=== PATIENT | female | born 1965 | race Caucasian/White ===

== ENCOUNTER 2016-11-28 21:45 | Emergency (ER) | payer OTHER ==
[~2016-11-28] VITALS: Ht 167.6 cm; Wt 79.5 kg
[~2016-11-28 21:45] MED LIST: ALBUTEROL SULF8.5 GM IH; AMBIEN5 M1 PO; ASPIR 8181 M1 PO; ASPIRIN EC325 MG PO; BUPROPION HCL75 MG PO; CELEBREX200 MG PO; CLONIDINE HCL0.1 MG PO; CYMBALTA60 MG PO; Ecotrin PO; FLEXERIL10 MG PO; LEVAQUIN750 MG PO; LISINOPRIL5 MG PO; LITE COAT ASPI325 M1 PO; LODINE500 MG PO; LOPRESSOR25 MG PO; Lipitor PO; METHOTREXATE2.5 MG PO; METOPROLOL SUCC25 MG PO; METOPROLOL TART25 MG PO; NITROSTAT0.4 MG SL; NOHOMEMEDS; OMEPRAZOLE20 MG PO; OMEPRAZOLE40 M1 PO; ONE DAILY TABL1 EAC1 PO; PERCOCET 5/31 TABLET PO; PERCOCET 7.51 TABLET PO; PLAQUENIL200 MG PO; PREDNISONE2.5 MG PO; PREMARIN VAGI42.5 GM VG; PREVACID30 MG PO; PROMETHAZINE HC25 M1 PO; PROVENTIL,2.5 MG/3 M IH; PROVENTIL17 GM IH; PROZAC40 MG PO; Plavix PO; REGLAN5 MG PO; SIMVASTATIN20 MG PO; SIMVASTATIN40 MG PO; VENTOLIN HFA18 GM IH; VOLTAREN50 MG PO; VOLTAREN75 MG PO; ZOFRAN4 MG PO; ZOLPIDEM TARTRAT5 MG PO; Zestril,Prinivil PO; metoprolol PO
[2016-11-28 22:41] LABS: HEMATOCRIT 45.6 % (36.0-46.0); MCH 27.3 PG (29.0-34.0); MCHC 32.5 G/DL (30.0-36.0); MCV 84.1 FL (83-99); MEAN PLAT.VOLUME 9.5 uM^3 (9.5-12.4); PLATELET COUNT 240 K/uL (156-360); RBC DIS.WIDTH-CV 14.6 % (11.8-14.6); RBC DIS.WIDTH-SD 44.5 % (39-53); RED BLOOD COUNT 5.42 M/uL (3.80-5.20); WHITE BLOOD COUNT 7.7 K/uL (4.1-10.2)
[2016-11-28 22:52] LABS: CHLORIDE 108 mEq/L (99-109); POTASSIUM 4.9 mEq/L (3.7-5.4); SODIUM 141 mEq/L (136-147)
[2016-11-28 22:54] LABS: GLUCOSE 75 mg/dL (70-99)
[2016-11-28 22:56] LABS: ANION GAP 11 MEQ/L (2-14)
[2016-11-28 22:58] LABS: GFR ESTIMATE (CALCULATED) > 59 mL/min/
[2016-11-28 22:59] LABS: D-DIMER ELISA 0.74 mg/L FEU (< 0.57); UREA NITROGEN (BUN) 16 mg/dL (9-23)
[2016-11-28 23:06] LABS: TROP-I INTERPRETATION NEGATIVE; TROPONIN-I < 0.01 ng/mL (0.0-0.30)
[2016-11-28 23:20] LABS: MAGNESIUM 2.2 mg/dL (1.3-2.7)
[2016-11-28 23:24] LABS: TOTAL BILIRUBIN 0.4 mg/dL (0.0-1.0)
[2016-11-28 23:25] LABS: ALKALINE PHOSPHATASE 80 IU/L (3-129)
[2016-11-28 23:28] LABS: DIRECT BILIRUBIN 0.1 mg/dL (0.0-0.3)
[2016-11-28 23:29] LABS: LIPASE 33 U/L (1.0-51.0)
[2016-11-29] MEDS ORDERED: LEVAQUIN500 MG PO (00:26)
[2016-11-29] MEDS ORDERED: CARAFATE1 GM PO (00:28)
[2016-11-29] MEDS ORDERED: PROMETHAZINE HC25 M1 PO (00:28)
[2016-11-29 02:23] VITALS: BP 122/77
== END 2016-11-29 02:23 | disposition home or self-care (01) ==
LOC: EME 21:45
DX: J20.9 Acute bronchitis, unspecified (principal); J18.9 Pneumonia, unspecified organism; R11.2 Nausea with vomiting, unspecified; K29.00 Acute gastritis without bleeding; J45.909 Unspecified asthma, uncomplicated; I25.10 Atherosclerotic heart disease of native coronary artery without angina pectoris; G89.29 Other chronic pain; E11.9 Type 2 diabetes mellitus without complications; I10 Essential (primary) hypertension; I25.2 Old myocardial infarction; K21.9 Gastro-esophageal reflux disease without esophagitis; M06.9 Rheumatoid arthritis, unspecified; Z98.61 Coronary angioplasty status; Z79.82 Long term (current) use of aspirin; F17.200 Nicotine dependence, unspecified, uncomplicated
CPT/HCPCS: 71020; 71275; 80048; 80076; 83690; 83735; 83880; 84484; 85027; 85379; 93005; 99281; 99285; J1956

== ENCOUNTER 2017-01-02 15:26 | Emergency (ER) | payer OTHER ==
[~2017-01-02] VITALS: Ht 167.6 cm; Wt 80.0 kg
[~2017-01-02 15:26] MED LIST changes: +CARAFATE1 GM PO; +LEVAQUIN500 MG PO
[2017-01-02] MEDS ORDERED: BENADRYL ITCH28.3 GM TP (16:20)
[2017-01-02] MEDS ORDERED: BENADRYL25 MG PO (16:20)
[2017-01-02] MEDS ORDERED: ATARAX,VISTARIL50 MG PO (16:20)
[2017-01-02 16:28] VITALS: BP 134/78
== END 2017-01-02 16:28 | disposition home or self-care (01) ==
LOC: EME 15:26
DX: S40.861A Insect bite (nonvenomous) of right upper arm, initial encounter (principal); S40.862A Insect bite (nonvenomous) of left upper arm, initial encounter; S80.861A Insect bite (nonvenomous), right lower leg, initial encounter; S80.862A Insect bite (nonvenomous), left lower leg, initial encounter; S60.561A Insect bite (nonvenomous) of right hand, initial encounter; S60.562A Insect bite (nonvenomous) of left hand, initial encounter; S60.469A Insect bite (nonvenomous) of unspecified finger, initial encounter; S10.96XA Insect bite of unspecified part of neck, initial encounter; W57.XXXA Bitten or stung by nonvenomous insect and other nonvenomous arthropods, initial encounter; I10 Essential (primary) hypertension; J45.909 Unspecified asthma, uncomplicated; G89.29 Other chronic pain; Z79.891 Long term (current) use of opiate analgesic; Z79.82 Long term (current) use of aspirin; Z87.891 Personal history of nicotine dependence; Z95.5 Presence of coronary angioplasty implant and graft
CPT/HCPCS: 99281; 99284

== ENCOUNTER 2017-06-04 00:40 | Emergency (ER) | payer OTHER ==
[~2017-06-04] VITALS: Ht 167.6 cm; Wt 85.1 kg
[~2017-06-04 00:40] MED LIST changes: +ATARAX,VISTARIL50 MG PO; +BENADRYL ITCH28.3 GM TP; +BENADRYL25 MG PO
[2017-06-04 03:11] VITALS: BP 150/86
== END 2017-06-04 03:35 | disposition home or self-care (01) ==
LOC: EME 00:40
DX: S16.1XXA Strain of muscle, fascia and tendon at neck level, initial encounter (principal); S39.012A Strain of muscle, fascia and tendon of lower back, initial encounter; M25.511 Pain in right shoulder; V49.50XA Passenger injured in collision with unspecified motor vehicles in traffic accident, initial encounter; T14.8 Other injury of unspecified body region; F17.200 Nicotine dependence, unspecified, uncomplicated
CPT/HCPCS: 71101; 72040; 72100; 73502; 99281; 99283; J2270

== ENCOUNTER 2017-06-17 20:31 | Emergency (ER) | payer OTHER ==
[~2017-06-17] VITALS: Ht 167.6 cm; Wt 84.8 kg
[2017-06-17 20:33] VITALS: BP 123/67
[2017-06-17 20:47] LABS: ADD MIUA? NO; BILIRUBIN NEGATIVE; BLOOD NEGATIVE; COLOR STRAW ((YELLOW)); GLUCOSE (STRIP) NEGATIVE; KETONES NEGATIVE; LEUKOCYTES NEGATIVE; NITRITE NEGATIVE; PROTEIN (STRIP) NEGATIVE; SPECIFIC GRAVITY 1.006 (1.000-1.030); UCUL ADDED? NO; UROBILINOGEN 0.2 MG/DL (0.2-1.0)
[2017-06-18 00:08] LABS: BASOPHIL COUNT 0.1 K/uL (0-0.1); EOSINOPHIL (%) 1.6 % (0-5); EOSINOPHIL COUNT 0.1 K/uL (0-0.3); HEMATOCRIT 42.8 % (36.0-46.0); IMMATURE GRANULOCYTE (%) 0.5 % (0.0-0.7); INSTRUMENT ABS NEUTROPHIL CT 4.4 K/uL; MCH 27.9 PG (29.0-34.0); MCHC 32.7 G/DL (30.0-36.0); MCV 85.3 FL (83-99); MEAN PLAT.VOLUME 9.5 uM^3 (9.5-12.4); MONOCYTE (%) 9.1 % (3-12); MONOCYTE COUNT 0.8 K/uL (0-0.8); NEUTROPHIL (%) 52.2 % (45-76); NEUTROPHIL COUNT 4.4 K/uL (1.8-6.4); PLATELET COUNT 186 K/uL (156-360); RBC DIS.WIDTH-CV 14.7 % (11.8-14.6); RED BLOOD COUNT 5.02 M/uL (3.80-5.20); WHITE BLOOD COUNT 8.4 K/uL (4.1-10.2)
[2017-06-18 00:16] LABS: CHLORIDE 107 mEq/L (99-109); POTASSIUM 3.9 mEq/L (3.7-5.4); SODIUM 139 mEq/L (136-147)
[2017-06-18 00:18] LABS: GLUCOSE 91 mg/dL (70-99)
[2017-06-18 00:20] LABS: ANION GAP 11 MEQ/L (2-14); TOTAL BILIRUBIN 0.8 mg/dL (0.0-1.0)
[2017-06-18 00:22] LABS: ALKALINE PHOSPHATASE 85 IU/L (3-129); GFR ESTIMATE (CALCULATED) > 59 mL/min/
[2017-06-18 00:23] LABS: UREA NITROGEN (BUN) 13 mg/dL (9-23)
== END 2017-06-18 00:18 | disposition left against medical advice (07) ==
LOC: EME 20:31
PROVIDERS: Emergency Medicine
DX: R32 Unspecified urinary incontinence (principal); R10.2 Pelvic and perineal pain; F17.200 Nicotine dependence, unspecified, uncomplicated; Z87.442 Personal history of urinary calculi; Z88.0 Allergy status to penicillin; Z88.6 Allergy status to analgesic agent
CPT/HCPCS: 72100; 80053; 81003; 85025; 99281; 99283

== ENCOUNTER → 2018-02-08 | Outpatient (CLI) | payer OTHER | END | disposition home or self-care (01) | LOC: EKG 12-16 13:00 | DX: I51.7 Cardiomegaly (principal); I70.0 Atherosclerosis of aorta; I05.1 Rheumatic mitral insufficiency; I07.1 Rheumatic tricuspid insufficiency; I09.89 Other specified rheumatic heart diseases; I05.8 Other rheumatic mitral valve diseases; I44.7 Left bundle-branch block, unspecified; I51.89 Other ill-defined heart diseases | CPT/HCPCS: 93308 ==